=== PATIENT | male | born 1950 | race Caucasian/White ===

== ENCOUNTER → 2023-07-13 07:08 | Outpatient (REF) | payer OTHER, SELFPAY | LOC: HWRAD 07:08 | PROVIDERS: ATTENDING PHYSICIAN Specialist; FAMILY PHYSICIAN Internal Medicine | DX: N18.32 Chronic kidney disease, stage 3b (principal) | CPT/HCPCS: 76775 ==

== ENCOUNTER → 2024-05-20 06:08 | Outpatient (REF) | payer OTHER, SELFPAY | LOC: HWCARD 06:08 | PROVIDERS: ATTENDING PHYSICIAN Orthopaedic Surgery; FAMILY PHYSICIAN Internal Medicine | DX: Z01.818 Encounter for other preprocedural examination (principal) | CPT/HCPCS: 93005 ==

== ENCOUNTER → 2024-06-05 07:10 | Outpatient (REF) | payer OTHER, SELFPAY | LOC: HWRCS 07:10 | PROVIDERS: ATTENDING PHYSICIAN Internal Medicine; FAMILY PHYSICIAN Internal Medicine | DX: Z01.810 Encounter for preprocedural cardiovascular examination (principal); I35.1 Nonrheumatic aortic (valve) insufficiency; I10 Essential (primary) hypertension; I45.10 Unspecified right bundle-branch block | CPT/HCPCS: 93306 ==

== ENCOUNTER 2024-07-12 01:36 | Emergency (ER) | payer OTHER, SELFPAY ==
[2024-07-12 01:40] VITALS: BP 131/74
[2024-07-12 01:53] LABS: % Basophils 1.6 % (0-2); % Eosinophils 3.6 % (0-6); % Immature Granulocytes 0.4 % (0-0.5); % Lymphocytes 15.7 % (20.5-51.1); % Monocytes 8.5 % (1.7-9.3); % Neutrophils 70.2 % (42.2-75.2); Absolute Basophils 0.1 10^3/uL (0-0.2); Absolute Eosinophils 0.3 10^3/uL (0-0.7); Absolute Lymphocytes 1.3 10^3/uL (1.2-3.4); Absolute Monocytes 0.7 10^3/uL (0.1-0.6); Absolute Neutrophils 5.7 10^3/uL (1.4-6.5); Hematocrit 31.8 % (39.0-52.0); Hemoglobin 10.6 g/dL (13.0-18.0); Mean Corp Hgb Conc. 33.3 g/dL (33.0-37.0); Mean Corpuscular Hgb 32.4 pg (27.0-31.0); Mean Corpuscular Volume 97.2 fL (80.0-94.0); Mean Platelet Volume 9.1 fL (7.4-10.4); Nucleated Red Blood Cells % 0 % (-); Platelet Count 442 10^3/uL (130-400); Red Blood Cell Count 3.27 10^6/uL (4.70-6.10); Red Cell Dist. Width 13.8 % (11.5-14.5); White Blood Cell Count 8.1 10^3/uL (4.8-10.8)
[2024-07-12 02:00] VITALS: BP 120/76
[2024-07-12 02:09] LABS: ALT (SGPT) 15 U/L (0-50); AST (SGOT) 16 U/L (17-59); Albumin 3.7 g/dl (3.5-5.0); Alkaline Phosphatase 84 U/L (38-126); Blood Urea Nitrogen 39 mg/dl (9-20); Calcium 9.5 mg/dl (8.4-10.2); Carbon Dioxide 21 mmol/L (22-30); Chloride 111 mmol/L (98-107); Estimated Creatinine Clearance 27 ml/min; Glucose 117 mg/dl (70-99); Lipase 83 U/L (23-300); Potassium 5.4 mmol/L (3.5-5.1); Sodium 140 mmol/L (135-145); Total Bilirubin 0.4 mg/dl (0.2-1.3); Total Protein 6.4 g/dl (6.3-8.2); eGFR 32.42
[2024-07-12 03:00] VITALS: BP 123/72
[2024-07-12] MEDS: ZOFRAN 4 MG IV (03:14)
[2024-07-12] MEDS: NSS 1000 IV (03:14)
[2024-07-12] MEDS: PEPCID 20 MG IV (03:17)
--- NOTE | 2024-07-12 03:35 | ED.GENMED ---
History of Present Illness
General
Chief Complaint: Abdominal Pain
Source: patient
Exam Limitations: none
Time Seen by Provider: 07/12/24 02:33
Nursing documentation reviewed up to this point in time: agreed with
History of Present Illness
History of Present Illness:
74-year-old male history of BPH presenting to the emergency department today for concerns of ongoing upper abdominal pain 1 episode of vomiting last week ongoing over the past few weeks. Denies any chest pain shortness of breath
Past History
Past History
ED Past Medical History: Other (BPH)
ED Past Surgical History: Orthopedic
Social History
Tobacco: Non-smoker
Drug: None
Personal:
Living: with family
Family History
Family History: Negative Diabetes, Hypertension, Early CAD, Asthma or Cancer
Review of Systems
Review of Systems
Allergies reviewed?: Yes
All Other Systems: ROS reviewed and negative except as documented in HPI and ROS
Phy Exam
Physical Exam
Physical Exam:
GENERAL: Alert , in no apparent distress
EYE: pupils equal and reactive
NECK: Supple, no significant adenopathy.
ENT: o/p clr, mmm.
CARDIAC: Regular rate and rhythm .
LUNGS: Clear breath sounds bilaterally, no acute respiratory distress, no wheezes/rales/rhonchi
ABDOMEN: Vague abdominal pain throughout the upper abdomen.
NEUROLOGICAL: Alert and oriented, no focal neuro deficits
SKIN: Warm and dry, skin intact.
MUSCULOSKELETAL: No edema, well perfused.
PSYCH: Normal and appropriate interaction.
Course
Orders/Labs/Results
Orders:
Orders
07/12/24 01:42
Complete Blood Count/With Diff Urgent
Comprehensive Metabolic Panel Urgent
Lipase Urgent
07/12/24 01:56
EKG [Electrocardiogram (*1)] Urgent
Reason for Study: Abdominal Pain
EKG- Treatment ONCE
07/12/24 03:00
CT Abd/Pel (IV only)-DH only Urgent
Comment:
Reason For Exam: diffuse abd pain
Famotidine [Pepcid] 20 mg IV NOW STA
Ondansetron Injectable [Zofran] 4 mg IV NOW STA
07/12/24 03:01
0.9% Sodium Chloride 1000 ml [Nss] 1,000 ml IV BOLUS
Abnormal Lab Results
07/12/24
01:42
RBC 3.27 L 10^6/uL
(4.70-6.10)
Hgb 10.6 L g/dL
(13.0-18.0)
Hct 31.8 L %
(39.0-52.0)
MCV 97.2 H fL
(80.0-94.0)
MCH 32.4 H pg
(27.0-31.0)
Plt Count 442 H 10^3/uL
(130-400)
Absolute Monos (auto) 0.7 H 10^3/uL
(0.1-0.6)
Lymphocytes % 15.7 L %
(20.5-51.1)
Potassium 5.4 H mmol/L
(3.5-5.1)
Chloride 111 H mmol/L
(98-107)
Carbon Dioxide 21 L mmol/L
(22-30)
BUN 39 H mg/dl
(9-20)
Creatinine 2.1 H mg/dL
(0.7-1.3)
Glucose 117 H mg/dl
(70-99)
AST 16 L U/L
(17-59)
07/12/24 01:42
07/12/24 01:42
Vital Signs
Initial and Last Documented VS:
Initial Vital Signs
Temp Pulse Resp BP Pulse Ox
98.2 F 66 16 131/74 99
04/18/25 01:40 07/12/24 01:40 07/12/24 01:40 07/12/24 01:40 07/12/24 01:40
Last Documented Vital Signs
Temp Pulse Resp BP Pulse Ox
98.2 F 66 16 131/74 99
07/12/24 01:40 07/12/24 01:40 07/12/24 01:40 07/12/24 01:40 07/12/24 01:40
MDM/Problems Addressed
MDM/Problems Addressed:
74-year-old male presenting to the emergency department today with concerns of upper abdominal pain ongoing for multiple weeks. Does have reproducible pain throughout the upper abdomen. Labs here unremarkable does have elevated renal function test
but at patient's baseline. CT scan showing duodenal ulcer no additional signs of complication. Plan for treatment with PPI otherwise stable for outpatient follow-up with GI. Return precautions given.
*Critical Care Note
Total Time (30-74mins, 75-104mins- exclusive of procedures): Not Applicable
ED Attending Note
-
Portions of this chart may have been created with voice recognition software.� Occasional wrong word or��sound alike� substitutions may have occurred due to the inherent limitations of voice recognition software.
Discharge Plan
Departure
Patient Disposition: Home (Routine Discharge)
Date of Disposition: 07/12/24
Time of Disposition: :25
Patient with high blood pressure during this ER visit?: No
Condition: Good
Covid-19: Not Applicable
Discharge Problem:
Duodenal ulcer
Instructions: Peptic ulcers
Prescriptions:
New
pantoprazole 40 mg tablet,delayed release (DR/EC)
40 mg PO DAILY 14 Days Qty: 14 0RF
No Action
lysine 500 MG tablet
500 mg PO DAILY
ycheotku-hjv-IT-lycopen-lutein [Centrum Silver] 1 EACH tablet
1 ea PO DAILY
cannabidiol [Epidiolex] 1 UNIT solution
1 unit PO QPM
acetaminophen 500 MG tablet
500 mg PO Q4HPRN PRN (Reason: pain) Qty: 1 0RF
tramadol 50 MG tablet
50 mg PO TIDPRN PRN (Reason: severe pain) Qty: 15 0RF
Referrals:
Bill Lira, DO [Active] - Follow up in 5-7 days
UNKNOWN - PT DOES,NOT KNOW [Family Provider] -
Activity Restrictions/Additional Instructions:
You came to the emergency department today with concerns of abdominal pain. You are found to have a duodenal ulcer. Please take the prescribed medication and follow-up closely with GI. Return for any worsening, new or concerning symptoms.
Interventions
Interventions:
*Risk Screen - Suicide Last Done: 07/12/24 01:40
*General Assessment Last Done: 07/12/24 01:40
*Neglect/Abuse Screening Last Done: 07/12/24 01:40
*ED- Fall Risk Assessment Last Done: 07/12/24 01:40
*ED COVID-19 Vaccine History Last Done: 07/12/24 01:40
PZ-Obccpx-Zcbmealeld Assessment Last Done: 07/12/24 01:50
Discharge Date and Time
Print Language: BRAZILIAN
[2024-07-12 04:02] VITALS: BP 119/73
[2024-07-12 04:56] VITALS: BP 107/80
== END 2024-07-12 05:00 | disposition home or self-care (01) ==
LOC: EMR 01:36
PROVIDERS: EMERGENCY PHYSICIAN Emergency Medicine
DX: K26.9 Duodenal ulcer, unspecified as acute or chronic, without hemorrhage or perforation (principal); N40.0 Benign prostatic hyperplasia without lower urinary tract symptoms; Z82.49 Family history of ischemic heart disease and other diseases of the circulatory system
CPT/HCPCS: 99284; 96374; 96375; 96361; 74177; 80053; 83690; 85025; 93005; Q9967

== ENCOUNTER 2024-07-24 06:27 | Day surgery (SDC) | payer OTHER, SELFPAY | END 2024-07-24 12:26 | disposition home or self-care (01) | LOC: GI 06:27 | PROVIDERS: ATTENDING PHYSICIAN Internal Medicine | DX: R10.13 Epigastric pain (principal); R93.3 Abnormal findings on diagnostic imaging of other parts of digestive tract; K26.9 Duodenal ulcer, unspecified as acute or chronic, without hemorrhage or perforation; K44.9 Diaphragmatic hernia without obstruction or gangrene | CPT/HCPCS: 43235 ==

== ENCOUNTER 2024-08-27 06:22 | Day surgery (SDC) | payer OTHER, SELFPAY | END 2024-08-27 12:03 | disposition home or self-care (01) | LOC: GI 06:22 | PROVIDERS: ATTENDING PHYSICIAN Internal Medicine | DX: K26.9 Duodenal ulcer, unspecified as acute or chronic, without hemorrhage or perforation (principal); R93.3 Abnormal findings on diagnostic imaging of other parts of digestive tract; K44.9 Diaphragmatic hernia without obstruction or gangrene; K31.89 Other diseases of stomach and duodenum; Z87.11 Personal history of peptic ulcer disease | CPT/HCPCS: 43239; 88305; 88342 ==

== ENCOUNTER → 2024-12-04 06:29 | Day surgery (SDC) | payer OTHER, SELFPAY | LOC: GI 06:29 | PROVIDERS: ATTENDING PHYSICIAN Internal Medicine | DX: K26.9 Duodenal ulcer, unspecified as acute or chronic, without hemorrhage or perforation (principal); K22.89 Other specified disease of esophagus; K44.9 Diaphragmatic hernia without obstruction or gangrene; K31.89 Other diseases of stomach and duodenum; R93.3 Abnormal findings on diagnostic imaging of other parts of digestive tract | CPT/HCPCS: 43239; 88305 ==